=== PATIENT | male | born 1985 | race Caucasian/White ===

== ENCOUNTER 2019-05-12 16:31 | Emergency (ER) | payer OTHER ==
[2019-05-12 16:41] VITALS: BP 118/62
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
== END 2019-05-12 18:58 | disposition home or self-care (01) ==
LOC: ED 16:31
DX: M54.89 Other dorsalgia (principal); M54.2 Cervicalgia; V89.2XXA Person injured in unspecified motor-vehicle accident, traffic, initial encounter; Y93.89 Activity, other specified; Y92.410 Unspecified street and highway as the place of occurrence of the external cause; Y99.8 Other external cause status
CPT/HCPCS: 72040; 72070